=== PATIENT | female | born 1955 | race African-American/Black ===

== ENCOUNTER 2025-06-17 10:48 | Outpatient (CLI) | payer MEDICARE, OTHER, SELFPAY ==
--- NOTE | ~2025-06-17 | XR_ITS ---
EXAMINATION: XR chest 2V DATE: 06/17/2025 13:01 INDICATION: Spinal cord disease TECHNIQUE: Frontal and lateral views of the chest were obtained. COMPARISON: None. FINDINGS: The lungs are clear. Heart size normal. No pneumothorax or subphrenic free air seen. Diffuse degenerative changes throughout the thoracic spine. IMPRESSION: 1. No focal acute process. Reviewed, dictated and finalized at location A. LATORY COMPLIANCE COORDINATOR IMPRESSION: 1. No focal acute process.
--- NOTE | 2025-06-17 12:13 | ECG_ITS ---
Test Date: 2025-06-17 12:31:11 Measurements Intervals Mio Rate: 76 P: 45 WI: 132 QRS: 13 QRSD: 83 T: 24 QT: 377 QTc: 424 Interpretive Statements SINUS RHYTHM WITH SINUS ARRHYTHMIA VOLTAGE CRITERIA FOR LVH BASELINE ARTIFACT- I, II, III, AVR, AVL, AVF, V2 BORDERLINE ECG No previous ECG available for comparison Electronically Signed On 06-17-2025 13:01:26 [employer] EXP[employer] by Elvis Casanova D.O.
[2025-06-17 12:55] LABS: Hematocrit 41.5 % (37.0-47.0); Hemoglobin 13.4 g/dL (12.0-15.0); Mean Corpuscular HGB Conc 32.3 g/dl (32-36); Mean Corpuscular Hemoglobin 32.2 pg (26-34); Mean Corpuscular Volume 99.8 fl (80-100); Platelet Count Result 232 k/mm3 (150-375); Red Blood Count 4.16 M/mm3 (4.2-5.4); White Blood Count 7.6 K/mm3 (4.5-10.0)
[2025-06-17 13:02] LABS: Add Urine Microscopic? YES; Appearance Urine Clear (Clear); Glucose Urine UA Negative (Negative); Leukocyte Esterase Ur Negative LEU/UL (Negative); Nitrate Urine Negative (Negative); Non Pathogenic Casts 0-2; Specific Grav Ur > 1.045 (1.001-1.035)
[2025-06-17 13:13] LABS: INR 1.0; Prothrombin Time 13.7 Seconds (11.1-14.7)
[2025-06-17 13:14] LABS: Partial Thromboplastin Time 23.9 Seconds (22.3-36.8)
[2025-06-17 13:15] LABS: Anion Gap 6 mmol/L (4-12); Blood Urea Nitrogen 12 mg/dL (7-17); Calcium 10.0 mg/dL (8.4-10.2); Carbon Dioxide 26 mmol/L (22-30); Chloride 109 mmol/L (98-107); Estimated Glomerular Filt Rate 56; Glucose 76 mg/dL (65-110); Potassium 4.5 mmol/L (3.4-5.0); Sodium 141 mmol/L (137-145)
== END 2025-06-17 10:49 | disposition home or self-care (01) ==
LOC: ANHSURGERY 10:58
PROVIDERS: PCP Family Medicine; Visit Provider Neurological Surgery
DX: G95.9 Disease of spinal cord, unspecified (principal); Z01.818 Encounter for other preprocedural examination
CPT/HCPCS: 36415; 71046; 80048; 81001; 85027; 85610; 85730; 93005